=== PATIENT | male | born 1960 ===

== ENCOUNTER 2017-06-08 16:36 | Emergency (ER) | payer OTHER ==
[2017-06-08 16:36] VITALS: BMI 33.3
[2017-06-08 16:48] VITALS: BP 109/80; PULSE 80; RESP 20; TEMP 98.3; O2SAT 98
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
== END 2017-06-08 17:48 | disposition home or self-care (01) ==
LOC: H.ER 16:36
DX: F43.20 Adjustment disorder, unspecified (principal); Z00.8 Encounter for other general examination

== ENCOUNTER 2018-02-09 08:36 | Day surgery (SDC) | payer MEDICAID ==
[2018-02-09] MEDS ORDERED: Lactated Ringer's 1,000 ML IV ONE (11:03)
[2018-02-09] MEDS ORDERED: Lidocaine 1% 5ml Abboject ONE (11:45)
[2018-02-09] MEDS ORDERED: Propofol 10 mg/ml Inj (20 ML) ONE (11:45)
[2018-02-09] MEDS ORDERED: Midazolam 2 MG/2 ML VIAL ONE (11:45)
[2018-02-09] MEDS ORDERED: Lidocaine 1% Inj (20ml) INFIL ONE (11:55)
[2018-02-09] MEDS ORDERED: Lactated Ringer's 1,000 ML IV SCH (12:30)
--- NOTE | 2018-02-09 22:18 | OP ---
PROCEDURE DATE: 02/09/2018 PREOPERATIVE DIAGNOSIS: Left complex epididymal cyst. POSTOPERATIVE DIAGNOSIS: Left complex epididymal cyst. PROCEDURE PERFORMED: Excision of left epididymal complex cyst. DESCRIPTION OF PROCEDURE: Under general anesthesia, the patient was placed on the operating room table in supine position. The area of the groin was draped and prepped in a sterile manner. Used 10 mL of lidocaine for local anesthetic effect. At this time, I made an incision on the left maximus-scrotum. I developed the testicle and the cyst upon to the operative field. I incised into the one portion of the cyst. There was a milky white fluid came out. There were three other loculations of fluid collection, which I opened individually and I cauterized and removed the cystic cavity, sent it for specimen analysis, cauterized some small active bleeders, replaced the testicle back into the scrotal cavity and then closed the skin in a two-layer closure with interrupted chromic suture. Minimal blood loss. The patient then had a Tegaderm dressing placed over the wound site. He was taken from the operating room in good condition. Leonor Hassan MD
[2018-02-10 00:11] VITALS: BP 105/51; PULSE 54; RESP 18; TEMP 97.6; O2SAT 96
== END 2018-02-09 17:15 | disposition home or self-care (01) ==
LOC: H.OPSURG 08:36
PROVIDERS: ATTEND Urology
DX: N44.2 Benign cyst of testis (principal); M19.90 Unspecified osteoarthritis, unspecified site; K21.9 Gastro-esophageal reflux disease without esophagitis
CPT/HCPCS: 54830; 88305; J0690; J1885; J2250; J2704; J2765; J3010; J7030; J7120